=== PATIENT | female | born 1955 | race Caucasian/White ===

== ENCOUNTER 2025-01-01 17:58 | Inpatient (IN) | payer MEDICARE, BC ==
[2025-01-01 18:55] LABS: BASOPHILS ABSOLUTE AUTO 0.07 K/uL (0.00-0.10); BASOPHILS PERCENT AUTO 0.7 % (0.1-1.3); EOSINOPHILS ABSOLUTE AUTO 0.16 K/uL (0.00-0.40); EOSINOPHILS PERCENT AUTO 1.6 % (0.0-5.4); IMMATURE GRAN ABSOLUTE AUTO 0.03 K/uL (0.00-0.23); IMMATURE GRAN PERCENT AUTO 0.3 % (0.0-0.7); LYMPHOCYTES ABSOLUTE AUTO 1.51 K/uL (0.8-3.3); LYMPHOCYTES PERCENT AUTO 14.7 % (11.4-47.7); MONOCYTES ABSOLUTE AUTO 0.37 K/uL (0.20-0.90); MONOCYTES PERCENT AUTO 3.6 % (3.3-12.6); NEUTROPHILS ABSOLUTE AUTO 8.11 K/uL (1.0-7.6); NEUTROPHILS PERCENT AUTO 79.1 % (40.0-78.1); PLATELET COUNT,PLT 261 K/uL (130-375); RED BLOOD CELL COUNT 4.35 M/uL (3.77-5.24); WHITE BLOOD CELL COUNT,WBC 10.3 K/uL (3.2-11.0)
[2025-01-01] MEDS ORDERED: Naloxone 0.4 MG/ML SDV IVPUSH PRN ×2 (19:10→23:13)
[2025-01-01 19:22] LABS: A/G RATIO 1.2 (1.2-2.2); ALANINE AMINOTRANSFERASE,ALT 28 U/L (12-78); ASPARTATE AMNIOTRANSFERASE,AST 20 U/L (15-37); BILIRUBIN TOTAL 0.4 mg/dL (0.2-1.0); BLOOD UREA NITROGEN,BUN 9 mg/dL (7-18); CARBON DIOXIDE,CO2 28 mmol/L (21-32); CHLORIDE,CL 101 mmol/L (100-108); CREATININE 0.7 mg/dL (0.6-1.0); EST CRCL DRUG DOSING (CG) 71.01 mL/min; ESTIMATED GFR 94 mL/min (>60); GLUCOSE RANDOM 146 mg/dL (74-106); POTASSIUM,K 4.0 mmol/L (3.6-5.2); PROTEIN TOTAL,TP 7.4 g/dL (6.4-8.2); SODIUM,NA 137 mmol/L (140-148)
[2025-01-01 19:23] LABS: LACTIC ACID 1.2 mmol/L (0.4-2.0)
[2025-01-01] MEDS: Ondansetron 4 MG/2 ML SDV IVPUSH ONE (19:43)
[2025-01-01] MEDS: Sodium Chloride 0.9% 10 ML Syringe FLUSH ONE (20:24)
[2025-01-01] MEDS: Iopamidol 612 MG/ML 100 ML Bottle IV ONE (20:24)
[2025-01-01] MEDS ORDERED: Ondansetron 4 MG/2 ML SDV IV PRN (23:13)
[2025-01-01 23:49] LABS: APPEARANCE,URINE CLEAR (CLEAR); GLUCOSE,URINE NEGATIVE (NEGATIVE); OCCULT BLOOD,URINE NEGATIVE (NEGATIVE)
[2025-01-01 23:56] LABS: SQUAMOUS EPITHELIAL CELLS,UR FEW /HPF; UROTHELIAL CELLS,URINE NOT SEEN /HPF
[2025-01-02] MEDS ORDERED: Sodium Chloride 0.9% 50 ML SDV ONE (07:16)
[2025-01-02] MEDS ORDERED: Bupivacaine 0.5%/EPINEPHrine 1:200,000 50 ML MDV ONE (07:16)
[2025-01-02] MEDS ORDERED: fentaNYL 250 MCG/5 ML SDV ONE ×2 (08:19→09:27)
[2025-01-02] MEDS ORDERED: Propofol 200 MG/20 ML SDV ONE (08:21)
[2025-01-02] MEDS ORDERED: Dexamethasone 4 MG/ML SDV ONE (08:21)
[2025-01-02] MEDS ORDERED: Succinylcholine 200 MG/10 ML MDV ONE (08:21)
[2025-01-02] MEDS ORDERED: Ondansetron 4 MG/2 ML SDV ONE (08:21)
[2025-01-02] MEDS: Indocyanine Green 25 MG SDV ONE (10:10)
[2025-01-02] MEDS: Piperacillin/Tazobactam/Dext 4.5 GM in Premix Bag 1 BAG IV SCH (12:40)
[2025-01-03 09:11] LABS: BASOPHILS ABSOLUTE AUTO 0.03 K/uL (0.00-0.10); BASOPHILS PERCENT AUTO 0.2 % (0.1-1.3); EOSINOPHILS ABSOLUTE AUTO 0.04 K/uL (0.00-0.40); EOSINOPHILS PERCENT AUTO 0.3 % (0.0-5.4); IMMATURE GRAN ABSOLUTE AUTO 0.05 K/uL (0.00-0.23); IMMATURE GRAN PERCENT AUTO 0.4 % (0.0-0.7); LYMPHOCYTES ABSOLUTE AUTO 2.52 K/uL (0.8-3.3); LYMPHOCYTES PERCENT AUTO 19.6 % (11.4-47.7); MONOCYTES ABSOLUTE AUTO 0.99 K/uL (0.20-0.90); MONOCYTES PERCENT AUTO 7.7 % (3.3-12.6); NEUTROPHILS ABSOLUTE AUTO 9.25 K/uL (1.0-7.6); NEUTROPHILS PERCENT AUTO 71.8 % (40.0-78.1); PLATELET COUNT,PLT 257 K/uL (130-375); RED BLOOD CELL COUNT 3.82 M/uL (3.77-5.24); WHITE BLOOD CELL COUNT,WBC 12.9 K/uL (3.2-11.0)
[2025-01-03] MEDS: FLU (Fluad Triv) 25-26 (65UP)/MF59C/PF 45 MCG/0.5 ML Syringe IM ONE (09:59)
== END 2025-01-03 12:00 | disposition home or self-care (01) | DRG 355 ==
LOC: JP.ED 17:58 → JP.SDS 21:21 → JP.MS 22:17 → INTOOBSV 22:17 → OBSVTOIN 01-02 16:13
PROVIDERS: ADMIT Surgery; ATTEND Surgery
PROC: 3E03329 Introduction of Other Anti-infective into Peripheral Vein, Percutaneous Approach (ICD-10-PCS; 2025-01-02)
PROC: 0WQF0ZZ Repair Abdominal Wall, Open Approach (ICD-10-PCS; principal; 2025-01-02 09:15)
DX: K46.0 Unspecified abdominal hernia with obstruction, without gangrene (principal); Z79.899 Other long term (current) drug therapy; K43.6 Other and unspecified ventral hernia with obstruction, without gangrene; G62.9 Polyneuropathy, unspecified; M79.7 Fibromyalgia; E66.9 Obesity, unspecified; Z90.710 Acquired absence of both cervix and uterus; Z98.891 History of uterine scar from previous surgery; Z87.81 Personal history of (healed) traumatic fracture; Z68.35 Body mass index [BMI] 35.0-35.9, adult; Z87.891 Personal history of nicotine dependence
CPT/HCPCS: 36415; 74177; 80053; 81001; 83605; 83690; 85025; 86140; 94640; 96361; 96374; 96375; 99285; A9270 ×2; J0330; J1100; J2405 ×2; J2543 ×3; J2704; J3010 ×2; J7030 ×2; Q9967; 00830-QZ; 90653; 93010; 96365; 96366; 96376; G0008; G0378; J1171; J3490